=== PATIENT | male | born 1955 | race Caucasian/White ===

== ENCOUNTER 2022-12-26 14:42 | Emergency (ER) | payer MEDICARE ==
[2022-12-26 14:52] VITALS: BP 150/77
[2022-12-26] MEDS ORDERED: ERYTHROMYCIN OPHTH OINT 1 GM TUBE LEFTEYE STA (15:45)
--- NOTE | 2022-12-26 15:48 | ED Physician Documentation ---
History of Present Illness - Stated complaint Stated Complaint: LT EYE INJ - Chief complaint Chief Complaint: Heent - Additonal information Additional information: 67-year-old male presents emergency department for evaluation of acute left eye pain. Was riding in a vehicle with the windows down when he felt something fly into his left eye. He had immediate discomfort though no vision loss. For the last several hours the eye has continued to tear and be uncomfortable. Does not wear contact lenses. Review of Systems Eyes: reports: Discharge, Irritation. denies: Loss of vision, Decreased vision, Photophobia PD PAST MEDICAL HISTORY - Present Medications Home Medications: Ambulatory Orders Medication Instructions Recorded Confirmed No Known Home Medications 12/26/22 12/26/22 - Allergies Allergies/Adverse Reactions: Allergies Allergy/AdvReac Type Severity Reaction Status Date / Time No Known Drug Allergies Allergy Verified 12/26/22 14:50 PD ED PE EXPANDED - General General: Alert, No acute distress - Eyes Eyes: Other (Posterior chamber appears clear. PERRLA. EOMI without pain. Soft globes. Negative fluorescein. No obvious foreign body.) Results - Vitals Vitals: Vital Signs - 24 hr 12/26/22 14:45 Temperature 36.6 C Heart Rate 63 Respiratory 14 Rate Blood Pressure 150/77 H O2 Saturation 99 Oxygen O2 Source Room air PD Medical Decision Making - ED course Complexity details: d/w patient ED course: 67-year-old male presents here with acute left eye pain after driving in a vehicle with open windows and feeling something fly into the eye. On exam there was no obvious foreign body. He had a negative fluorescein stain without evide nce of corneal ulceration or abrasion. His globes were soft. He had a clear Anterior chamber. He is PERRLA. No eye pain with extraocular movements. His vision is preserved. I suspect he had a foreign body that has subsequently been lost due to tearing. The eye was irrigated with about 500 mL of saline here in the ER. In order to help with discomfort he will be placed on erythromycin ointment for the next several days. Advise cool compress. If not markedly better he will return to the ER. Otherwise I have advised him to have close follow-up with his lan specialist. Departure - Departure Disposition: 01 Home, Self Care Clinical Impression: Acute left eye pain Condition: Stable Record reviewed to determine appropriate education?: Yes Comments: You felt something fly into your eye while driving in a vehicle with open windows. On exam today there was no obvious foreign body, displaced eyelashes or scratch or tear of the cornea. It is likely that something did hit your eye causing some pain and irritation. In order to help treat the symptoms over the neck several days I would like you to apply the erythromycin ointment to your eye 2-3 times a day. For any general eye discomfort I recommend that you use a cold patch over the eye. If you find your symptoms or not markedly improving, you develop swelling of the lids, any loss of vision or have drainage from your eye then please return immediately to the ER. I encourage you to discuss this ED visit with your lan specialist as soon as possible.
== END 2022-12-26 16:14 | disposition home or self-care (01) ==
LOC: ED 14:42
DX: H57.12 Ocular pain, left eye (principal)
CPT/HCPCS: 99282; 99283; J3490

== ENCOUNTER 2023-12-07 09:03 | Emergency (ER) | payer MEDICARE ==
--- NOTE | 2023-12-07 09:31 | XRAY Report ---
PROCEDURE: Chest 1V INDICATIONS: Chest Pain TECHNIQUE: One view of the chest was acquired. COMPARISON: None. FINDINGS: Surgical changes and devices: None. Lungs and pleura: No pleural effusions or pneumothorax. Lungs are clear. Mediastinum: Mediastinal contours appear normal. Heart size is normal. Bones and chest wall: No suspicious bony lesions. Overlying soft tissues appear unremarkable. IMPRESSION: No acute cardiopulmonary process. Reviewed by: Rich Law MD on 12/07/2023 9:30 AM PDT Approved by: Rich Law MD on 12/07/2023 9:30 AM PDT Station ID: [id number]
[2023-12-07 09:52] LABS: BASOPHILS % (AUTO) 0.5 %; EOSINOPHILS # (AUTO) 0.2 10^3/uL (0.0-0.7); EOSINOPHILS % (AUTO) 3.1 %; HCT - HEMATOCRIT 44.4 % (42.0-52.0); HGB - HEMOGLOBIN 14.9 g/dL (14.0-18.0); LYMPHOCYTES # (AUTO) 1.7 10^3/uL (1.5-3.5); MEAN CORPUSCULAR HEMOGLOBIN 29.6 pg (27.0-31.0); MEAN CORPUSCULAR HGB CONC 33.6 g/dL (32.0-36.0); MEAN CORPUSCULAR VOLUME 88.1 fL (80.0-94.0); MEAN PLATELET VOLUME 9.8 fL (7.4-11.4); MONOCYTES # (AUTO) 0.4 10^3/uL (0.0-1.0); MONOCYTES % (AUTO) 7.6 %; NEUTROPHILS # (AUTO) 3.4 10^3/uL (1.5-6.6); NEUTROPHILS % (AUTO) 58.5 %; PLT - PLATELET COUNT 246 10^3/uL (130-450); RED BLOOD COUNT 5.04 10^6/uL (4.70-6.10); WHITE BLOOD COUNT 5.8 x10^3/uL (4.8-10.8)
[2023-12-07 10:00] LABS: ALBUMIN 4.1 g/dL (3.2-5.5); ALBUMIN/GLOBULIN RATIO 1.4 (1.0-2.2); BILIRUBIN,TOTAL 0.6 mg/dL (0.2-1.0); CALCIUM 9.3 mg/dL (8.5-10.3); CREATININE 0.9 mg/dL (0.6-1.3); POTASSIUM 4.1 mmol/L (3.5-4.5); TOTAL PROTEIN 7.1 g/dL (6.4-8.9)
--- NOTE | 2023-12-07 10:06 | ED Physician Documentation ---
History of Present Illness - Stated complaint Stated Complaint: CHEST PX,NAUSEA - Chief complaint Chief Complaint: Cardiac - History obtained from History obtained from: Patient - History of Present Illness Timing: How many weeks ago (1) Pain level max: 5 Pain level now: 1 - Additonal information Additional information: Patient is a 68-year-old male who states that about a week ago he was running to catch a plane when he developed right-sided chest wall pain. Right upper chest. He states that it lasted for about 45 minutes to an hour and then resolved. He states that he felt the pain again about 3 days ago during light exertion. No rhinorrhea, cough or congestion. He is visiting from [place]. States he does not have any cardiac history. Does have a history of hyperlipidemia but states that he reacted poorly to all the medications they gave him to lower his cholesterol and states that his cholesterol has been "good" lately. He states he had a cardiac stress test about 2 to 3 years ago that was normal as well. He is not having any significant pain now, he states if he thinks about it he can feel a dull ache in the right upper chest rates as a 0.5 out of 10. No fevers. No chills. No leg swelling. No recent immobilization. No history of blood clots. Review of Systems Constitutional: denies: Fever, Chills Nose: denies: Rhinorrhea / runny nose, Congestion Cardiac: denies: Palpitations Respiratory: denies: Cough, Wheezing GI: denies: Abdominal Pain, Nausea, Vomiting, Diarrhea Skin: denies: Rash Musculoskeletal: denies: Neck pain, Back pain Neurologic: denies: Headache PD PAST MEDICAL HISTORY - Past Medical History Past Medical History: Yes Cardiovascular: High cholesterol - Past Surgical History Past Surgical History: No Ortho: Other - Present Medications Home Medications: Ambulatory Orders Medication Instructions Recorded Confirmed No Known Home Medications 12/26/22 12/07/23 - Allergies Allergies/Adverse Reactions: Allergies Allergy/AdvReac Type Severity Reaction Status Date / Time No Known Drug Allergies Allergy Verified 12/07/23 09:11 - Social History Does the pt smoke?: No Smoking Status: Never smoker Does the pt drink ETOH?: Yes Does the pt have substance abuse?: No - Immunizations Immunizations are current?: Yes - POLST Patient has POLST: No PD ED PE NORMAL - Vitals Vital signs reviewed: Yes - General General: Alert and oriented X 3, No acute distress - HEENT HEENT: PERRL, Moist mucous membranes - Neck Neck: Supple, no meningeal sign - Cardiac Cardiac: RRR, Strong equal pulses - Respiratory Respiratory: No respiratory distress, Clear bilaterally - Abdomen Abdomen: Soft, Non tender, Non distended - Derm Derm: Warm and dry - Extremities Extremities: No edema, No calf tenderness / cord - Neuro Neuro: Alert and oriented X 3 - Psych Psych: Normal mood, Normal affect - Free text exam Free text exam: No chest wall tenderness. No crepitus. Results - Vitals Vitals: Vital Signs - 24 hr 12/07/23 12/07/23 12/07/23 09:08 09:22 11:30 Temperature 36.4 C L Heart Rate 76 61 Respiratory 20 15 Rate Blood Pressure 161/85 H 123/74 Blood Pressure 135/77 H [Right] O2 Saturation 100 97 12/07/23 12:00 Temperature Heart Rate 78 Respiratory 16 Rate Blood Pressure 128/84 H Blood Pressure [Right] O2 Saturation 100 Oxygen O2 Source Room air - EKG (time done) 09 EKG releavant findings:: EKG personally interpreted by author of this note. Relevant findings are: Rate: Rate (enter#) (72) Rhythm: NSR [place]: Normal Intervals: Normal [place] QRS: Normal Ischemia: Normal ST segments - Labs Labs: Laboratory Tests 12/07/23 12/07/23 09:30 09:30 WBC 5.8 RBC 5.04 Hgb 14.9 Hct 44.4 MCV 88.1 MCH 29.6 MCHC 33.6 RDW 13.0 Plt Count 246 MPV 9.8 Neut # (Auto) 3.4 Lymph # (Auto) 1.7 [place] # (Auto) 0.4 Eos # (Auto) 0.2 Baso # (Auto) 0.0 Absolute Nucleated RBC 0.00 Nucleated RBC % 0.0 Sodium 140 Potassium 4.1 Chloride 107 Carbon Dioxide 28 Anion Gap 5.0 L BUN 16 Creatinine 0.9 Estimated GFR (MDRD) 84 L Glucose 110 H Calcium 9.3 Total Bilirubin 0.6 AST 15 ALT 15 Alkaline Phosphatase 55 Troponin I High Sens 4.0 Total Protein 7.1 Albumin 4.1 Globulin 3.0 Albumin/Globulin Ratio 1.4 Lipase 13 - Rads (name of study) cxr Relevant Findings:: Final report received, See rad report PD Medical Decision Making - ED course Complexity details: reviewed results, re-evaluated patient, considered differential (No ST elevation ND, no aortic dissection, no PE, no tension pneumothorax, no aortic aneurysm), d/w patient ED course: Chest x-ray does not show any acute abnormalities. EKG does not show any acute ischemia. High sensitive troponin is negative after symptoms that occurred a week prior to today. Symptoms are not occurring at rest, not consistent with unstable angina. CT pulmonary angiogram does not show any evidence of PE. He does have mild to moderate coronary artery disease in the left anterior descending and circumflex arteries. He will start on an aspirin daily. He has is asymptomatic in the emergency department. Recommend that he follow-up with his PCP for an angiogram/stress test when he returns home. Patient counseled regarding signs and symptoms for which I believe and urgent re-evaluation would be necessary. Patient with good understanding of and agreement to plan and is comfortable going home at this time This document was made in part using voice recognition software. While efforts are made to proofread this document, sound alike and grammatical errors may occur. Departure - Departure Disposition: Home, Self Care Clinical Impression: Chest pain Qualifiers: Chest pain type: unspecified Qualified Code(s): R07.9 - Chest pain, unspecified Condition: Good Instructions: ED Chest Pain Atypical Unkn Cause Follow-Up: your,doctor when you get home [Other] Comments: Please start on a baby aspirin, 81 mg, daily. Your EKG does not show any acute abnormalities. Your high-sensitivity troponin does not show any abnormalities. Your CT pulmonary angiogram does not show any evidence of blood clots in your lungs. You do have mild to moderate coronary artery disease involving your left anterior descending coronary artery and your circumflex artery. This should be followed up closely with your doctor when you return home to [place]. They may want to do an angiogram versus a cardiac stress test. Please return if you worsen. Forms: PCP List Discharge Date/Time: 12/07/23 12:00
[2023-12-07] MEDS ORDERED: iohexoL-300 100 ML VIAL ONE (10:17)
--- NOTE | 2023-12-07 11:21 | CT Report ---
PROCEDURE: Angio Chest INDICATIONS: R sided chest pain, recent travel CONTRAST: Omni 300 80ml TECHNIQUE: After the administration of intravenous contrast, 2 mm axial images were acquired from the pulmonary apices to the posterior costophrenic angles during the arterial phase. In addition, 1 mm lung kernel and 5 mm soft tissue kernel reconstructions were performed. 3-dimensional coronal oblique maximum int ensity projection (MIP) reformats, 8 mm axial MIP, and 5 mm coronal and sagittal MPR reformats were t hen performed through the thorax. For radiation dose reduction, the following was used: automated exp osure control, adjustment of mA and/or kV according to patient size. COMPARISON: None. FINDINGS: Image quality: Excellent. Large vessels: No filling defects within the opacified pulmonary arteries, accounting for motion and contrast timing. No evidence of acute aortic syndrome or aortic aneurysm. Lungs and pleura: No consolidation. No pleural effusions. No pneumothorax. No suspicious pulmonary n odules which require follow up. Mediastinum: Heart size is normal. No pericardial effusion. No large vessel abnormality. No mediastin al adenopathy by size criteria. Chest wall and lower neck: Thyroid is unremarkable. No axillary or supraclavicular adenopathy by size . Bones: No aggressive osseous abnormality. Upper Abdomen: Unremarkable. IMPRESSION: No pulmonary embolus. No suspicious pulmonary nodules which require follow-up. Reviewed by: Melly Avila MD on 12/07/2023 11:19 AM PDT Approved by: Melly Avila MD on 12/07/2023 11:19 AM PDT Station ID: [id number]
[2023-12-07 12:06] VITALS: BP 128/84; O2SAT 100
[2023-12-07] MEDS: iohexoL-300 100 ML VIAL IVP ONE (16:41)
== END 2023-12-07 12:00 | disposition home or self-care (01) ==
LOC: ED 09:03
DX: R07.9 Chest pain, unspecified (principal); I25.10 Atherosclerotic heart disease of native coronary artery without angina pectoris
CPT/HCPCS: 36415; 71045; 71275; 80053; 83690; 84484; 85025; 93005; 99284; Q9967